=== PATIENT | female | born 1960 | race Caucasian/White ===

== ENCOUNTER 2017-04-15 14:01 | Emergency (ER) | payer OTHER ==
[2017-04-15] MEDS ORDERED: LABETALOL HCL 5 MG/ML VIAL IV ONE (14:15)
[2017-04-15] MEDS ORDERED: NITROGLYCERIN 0.4 MG/TAB BTL SL PRN (14:18)
[2017-04-15] MEDS ORDERED: ASPIRIN 81 MG TAB.CHEW PO ONE (14:18)
[2017-04-15 14:25] LABS: Hematocrit 46.1 % (37.0-47.0); Hemoglobin 16.1 gm/dL (12.5-16.0); Mean Cell Volume 90.4 fl (78-100); Mean Corpuscular Hemoglobin 31.6 pg (27-31); Mean Corpuscular Hgb Conc 34.9 g/dl (32-36); Mean Platelet Volume 11.2 fl (6.0-9.5); Neutrophil # 4.2 K/mm3 (1.3-6.0); Neutrophil % 63.8 % (42-75.0); Platelet Count 166 K/mm3 (150-450); Red Cell Distribution Width 12.4 % (11.5-14.0); White Blood Count 6.6 K/mm3 (4.0-10.5)
[2017-04-15] MEDS ORDERED: ASPIRIN 81 MG TAB.CHEW ONE (14:25)
[2017-04-15 14:37] LABS: Prothrombin Time (Patient) 9.9 Seconds (9.4-11.4)
[2017-04-15 14:42] LABS: INR 0.95 INR (0.90-1.10); Partial Thrombolplastin Time 25.8 Seconds (24-32)
[2017-04-15 14:43] LABS: Troponin I Less than 0.017 ng/ml (0.00-0.10)
[2017-04-15 14:48] LABS: ALT 29 U/L (19-67); Albumin * 4.1 gm/dl (3.4-5.0); Alkaline Phosphatase * 98 U/L (50-170); Anion Gap 14.1 mmol/L (6.8-13.8); BUN/Creatinine Ratio 19.8 (9.0-21.6); Bilirubin, Total 0.5 mg/dL (0.0-1.1); Blood Urea Nitrogen 16 mg/dL (3-23); Ca. Corrected For Albumin 8.8 mg/dL (8.4-10.2); Calcium * 9.2 mg/dL (7.9-10.9); Carbon Dioxide 26.5 mmol/L (24-32.6); Chloride 106 mmol/L (97-106); Glucose * 111 mg/dL (70-110); Potassium 3.6 mmol/L (3.4-4.6); Sodium 143 mmol/L (132-142); T4 Free * 1.36 ng/dL (0.76-1.46); Total Protein 8.4 gm/dL (6.2-8.2)
[2017-04-15 15:15] LABS: AST 16 U/L (0-48)
[2017-04-15] MEDS ORDERED: NITROGLYCERIN IN 5 % DEXTROSE 50 MG/250 ML INFUS..BTL IV PRN (15:49)
[2017-04-15 16:09] VITALS: BP 165/103
--- NOTE | 2017-04-15 16:12 | ERNOTE ---
Chest Pain/Cardiac HPI Date of Service: 04/15/17 Chief Complaint: Chest Pain Time Seen by Provider: 04/15/17 14:02 Source: patient Exam Limitations: no limitations Immunizations: IMMUNIZATION HX Immunizations Up to Date Yes History of Influenza Vaccine Yes Allergies/Adverse Reactions: Allergies No Known Allergies Allergy (Verified 04/15/17 14:16) Home Medications: HOME MEDICATIONS Levothyroxine Sodium [Synthroid] 137 mcg PO DAILY 04/15/17 [Last Taken Unknown] Narrative: patient presents to the ED for chest pain. This is central chest pain radiating to the left arm. She has had off and on pains somewhat like this in the past but this pain began this am with exertion. It resolved with rest. She went to her doctor and developed the pain with walking there. Had CP in the office and BP 210/130. Sent here. here still with the pain but improving. She tells me this is pain she can bring on by waling. No PARKER. No SOB. No diaphoresis. Timing: intermittent Severity/Quality: moderate Location: substernal Chest Pain Radiation: arms Activities at Onset: activity Modifying Factors - Improves: Present: rest Modifying Factors - Worsens: Present: exercise Nitro Today/Relief: no nitro taken today Aspirin Treatment Today: no aspirin today Associated Symptoms: Absent: headache, syncope, shortness of breath, diaphoresis , fever/chills, vomiting Prior Chest Pain/Cardiac Workup: Reports: other - no stress test since 2000 Prior Treatment: Denies: recently hospitalized Review of Systems - Review of Systems Constitutional: Absent: fever ENT: Present: no symptoms reported Respiratory: Present: See HPI Cardiology: Present: See HPI Gastrointestinal/Abdominal: Absent: abdominal pain Genitourinary: Absent: dysuria Skin: Absent: rash Neurological: Absent: weakness All Other Systems: All systems neg except as marked - Patient's Past Medical History Patient History - Medical: No pertinent hx, GERD Patient History - Cancer: Colon, Chemotherapy history Patient History - Surgical Procedures: Colon Resection Patient History - Other: None - Social History Living Situations: home Psych History: No pertinent hx Smoking Status: Never smoker Have you smoked in the past 12 months: No Do you dip or chew tobacco: No - Immunizations Immunizations Up to Date: Yes History of Influenza Vaccine: Yes Physical Exam - Physical Exam General Appearance: Present: alert, no apparent distress Head Exam: Present: normal inspection Eye Exam: Normal inspection: bilateral, PERRL: bilateral Ears, Nose, Throat: Present: normal ENT inspection Neck: Present: normal inspection Respiratory: Present: no respiratory distress, normal breath sounds, no accessory muscle use, lungs clear Cardiovascular/Chest: Present: normal peripheral pulses, tachycardia Gastrointestinal/Abdominal: Present: normal bowel sounds, nontender, nondistended, soft Back Exam: Present: normal range of motion Extremity Exam: Present: normal inspection, non-tender Neurological Exam: Present: alert, normal mood/affect, no motor/sensory deficits Skin Exam: Present: normal color, warm/dry ED Progress - Results and Orders Patient's Lab Results:: I have reviewed the patient's lab results. - Vital Signs Patient's Vital Signs:: I have reviewed the patient's vital signs. Vital Signs: Vital Signs 04/15/17 04/15/17 04/15/17 14:05 14:17 14:38 Temperature 37.8 C H Pulse Rate 103 H 98 85 Respiratory 18 18 Rate Blood Pressure 212/130 212/130 149/93 O2 Sat by Pulse 98 98 Oximetry 04/15/17 04/15/17 14:54 15:27 Temperature Pulse Rate 86 84 Respiratory 18 18 Rate Blood Pressure 154/86 151/91 O2 Sat by Pulse 98 98 Oximetry - EKG EKG read: Interp. by me EKG Comments: EKG # 1. NSR rtate 99. No STEMI. Non-specific ST/T wave changes. EKG # 2. NSR rate 77. New T wave inversions V3-6. No STEMI - X-Ray X-Ray #1 X-Ray: chest Interpretation: Interp. by me X-ray Comments: I reviewed images and report - Progress/Reassessment Chief Complaint: Chest Pain Progress Note-Subjective: 04/15/17 16:10 Pt had decreased BP and resolution of pain with NTG, ASA and Labetalol. NTG drip ordered. D/W Dr Burks given EKG changes, he recommeds transfer. D/W Dr Chavarria at [facility] who accepts transfer. Pt agreeable. Departure - Departure Clinical Impression: Chest pain Disposition: [facility] Condition: Stable Referrals: Gabriela De Luna, JOYCE [Primary Care Provider] -
== END 2017-04-15 16:36 | disposition short-term general hospital (02) ==
LOC: ER 14:01
DX: R07.9 Chest pain, unspecified (principal); Z85.038 Personal history of other malignant neoplasm of large intestine